=== PATIENT | male | born 1935 | race Caucasian/White ===

== ENCOUNTER 2017-08-03 12:15 | Emergency (ER) | payer MEDICARE, BC ==
[~2017-08-03] VITALS: Ht 170.2 cm; Wt 79.4 kg
--- NOTE | 2017-08-03 12:45 | NUR ---
PT IS IN ROOM 2B. DR TORREZ EVALUATED THE PT.
[2017-08-03 13:23] VITALS: BP 136/73
--- NOTE | 2017-08-03 13:23 | NUR ---
PT WAS D/C TO HOME. D/C INSTRUCTIONS GIVEN TO THE PT.
[2017-08-03] MEDS ORDERED: TDAP DIPH,PERTUSS,TET VAC/PF 0.5 ML DISP.SYRIN IM ONE (13:30)
[2017-08-12] MEDS: TDAP DIPH,PERTUSS,TET VAC/PF 0.5 ML DISP.SYRIN IM ONE (08:16)
[2017-08-12] MEDS: CEPHALEXIN MONOHYDRATE 500 MG CAPSULE PO ONE (08:17)
== END 2017-08-03 13:24 | disposition home or self-care (01) ==
LOC: ER 12:15
DX: S61.211A Laceration without foreign body of left index finger without damage to nail, initial encounter (principal); I10 Essential (primary) hypertension; E78.5 Hyperlipidemia, unspecified; E11.9 Type 2 diabetes mellitus without complications; Z79.4 Long term (current) use of insulin; X58.XXXA Exposure to other specified factors, initial encounter; Y93.H2 Activity, gardening and landscaping; Y92.89 Other specified places as the place of occurrence of the external cause; Y99.8 Other external cause status
CPT/HCPCS: 90471; 90715; 99283; A4663

== ENCOUNTER 2017-08-05 09:03 | Emergency (ER) | payer MEDICARE, BC ==
[~2017-08-05] VITALS: Ht 170.2 cm; Wt 79.4 kg
--- NOTE | 2017-08-05 09:17 | NUR ---
Pt here for wound check, lac on left index finger.
--- NOTE | 2017-08-05 09:26 | NUR ---
Patient discharged to home in stable conditon. Written and verbal after care instructions given. Patient verbalizes understanding of instructions.
[2017-08-05] MEDS ORDERED: NEOMY/BACITRA/POLYMYXIN B OINT UD PACKET TP ONE ×2 (09:30→09:36)
== END 2017-08-05 09:34 | disposition home or self-care (01) ==
LOC: ER 09:05
DX: S61.211D Laceration without foreign body of left index finger without damage to nail, subsequent encounter (principal); I10 Essential (primary) hypertension; E11.9 Type 2 diabetes mellitus without complications; Z79.4 Long term (current) use of insulin; X58.XXXD Exposure to other specified factors, subsequent encounter
CPT/HCPCS: 99283; A4663

== ENCOUNTER 2018-03-26 14:43 | Emergency (ER) | payer MEDICARE, BC ==
[~2018-03-26] VITALS: Ht 170.2 cm; Wt 81.6 kg
--- NOTE | 2018-03-26 14:59 | NUR ---
Dr. Melissa here at the bedside for MSE.
--- NOTE | 2018-03-26 15:56 | NUR ---
Pt returned from XR. Pt stable and nad noted upon returning.
--- NOTE | 2018-03-26 17:26 | NUR ---
Patient discharged to home in stable conditon. Written and verbal after care instructions given. Patient verbalizes understanding of instructions.
== END 2018-03-26 17:26 | disposition home or self-care (01) ==
LOC: ER 14:45
DX: S20.212A Contusion of left front wall of thorax, initial encounter (principal); I10 Essential (primary) hypertension; E78.00 Pure hypercholesterolemia, unspecified; E11.9 Type 2 diabetes mellitus without complications; W01.0XXA Fall on same level from slipping, tripping and stumbling without subsequent striking against object, initial encounter; Y93.89 Activity, other specified; Y92.89 Other specified places as the place of occurrence of the external cause; Y99.8 Other external cause status
CPT/HCPCS: 71101; 93005; A4663

== ENCOUNTER 2020-03-20 12:34 | Emergency (ER) | payer MEDICARE, BC ==
[~2020-03-20] VITALS: Ht 170.2 cm; Wt 75.7 kg
[2020-03-20] MEDS ORDERED: LIDOCAINE HCL 2% 20 ML VIAL ONE (12:49)
--- NOTE | 2020-03-20 13:10 | NUR ---
Patient discharged to home in stable condition. Written and verbal after care instructions given. Patient verbalizes understanding of instructions. Stressed follow up or return to ER for worsening s/s.
[2020-03-20] MEDS ORDERED: LIDOCAINE HCL 2% 20 ML VIAL TP ONE (13:15)
== END 2020-03-20 13:26 | disposition home or self-care (01) ==
LOC: ER 12:34
DX: S61.211A Laceration without foreign body of left index finger without damage to nail, initial encounter (principal); W26.8XXA Contact with other sharp object(s), not elsewhere classified, initial encounter; Y92.89 Other specified places as the place of occurrence of the external cause; E11.9 Type 2 diabetes mellitus without complications; Z79.4 Long term (current) use of insulin; I10 Essential (primary) hypertension
CPT/HCPCS: 12001; 99282; J3490; A4663

== ENCOUNTER 2020-03-22 11:16 | Emergency (ER) | payer MEDICARE, BC ==
[~2020-03-22] VITALS: Ht 170.2 cm; Wt 75.7 kg
[2020-03-22] MEDS ORDERED: NEOMY/BACITRA/POLYMYXIN B OINT UD PACKET TP ONE ×2 (11:30→11:31)
== END 2020-03-22 11:35 | disposition home or self-care (01) ==
LOC: ER 11:16
DX: S61.211D Laceration without foreign body of left index finger without damage to nail, subsequent encounter (principal); W45.8XXD Other foreign body or object entering through skin, subsequent encounter; E11.9 Type 2 diabetes mellitus without complications; Z79.4 Long term (current) use of insulin; I10 Essential (primary) hypertension; E78.5 Hyperlipidemia, unspecified
CPT/HCPCS: A4663

== ENCOUNTER 2020-03-30 09:56 | Emergency (ER) | payer BC, MEDICARE ==
[~2020-03-30] VITALS: Ht 170.2 cm; Wt 75.7 kg
--- NOTE | 2020-03-30 10:17 | NUR ---
PATIENT WAS SEEN BY MD FOR SUTURE REMOVAL WHICH WAS DONE BY DR LOVING. DC AND FOLLOW UP ISNTRUCTIONS GIVEN AND EXPLAINED TO PATIENT WHO STATES HE UNDERSTANDS ALL INSTRUCTIONS.
== END 2020-03-30 10:19 | disposition home or self-care (01) ==
LOC: ER 09:56
DX: S61.211D Laceration without foreign body of left index finger without damage to nail, subsequent encounter (principal); W45.8XXD Other foreign body or object entering through skin, subsequent encounter; E11.9 Type 2 diabetes mellitus without complications; Z79.4 Long term (current) use of insulin; I10 Essential (primary) hypertension
CPT/HCPCS: A4663

== ENCOUNTER 2020-08-03 00:47 | Emergency (ER) | payer MEDICARE, BC ==
[~2020-08-03] VITALS: Ht 170.2 cm; Wt 76.2 kg
--- NOTE | 2020-08-03 01:15 | NUR ---
Dr. Bledsoe at bedside for MSE.
[2020-08-03 01:57] LABS: BASOPHILS % (AUTO) 0.3 % (0.0-2.0); EOSINOPHILS # (AUTO) 0.2 K/uL (0.0-0.7); EOSINOPHILS % (AUTO) 3.1 % (0.0-7.0); HEMATOCRIT 38.1 % (36.7-47.1); HEMOGLOBIN 13.4 g/dL (12.5-16.3); LYMPHOCYTES # (AUTO) 0.9 K/uL (20.0-40.0); LYMPHOCYTES % (AUTO) 16.9 % (20.5-51.5); MEAN CORPUSCULAR HEMOGLOBIN 33.2 uug (23.8-33.4); MEAN CORPUSCULAR HGB CONC 35 g/dL (32.5-36.3); MEAN CORPUSCULAR VOLUME 94.7 fL (73.0-96.2); MONOCYTES # (AUTO) 0.5 K/uL (2.0-10.0); MONOCYTES % (AUTO) 9.4 % (0.0-11.0); NEUTROPHILS # (AUTO) 3.7 K/uL (1.8-8.9); NEUTROPHILS % (AUTO) 70.3 % (38.5-71.5); PLATELET COUNT (AUTO) 181 K/uL (152-348); RED BLOOD CELL COUNT(AUTO) 4.03 MIL/uL (4.06-5.63); WHITE BLOOD COUNT (AUTO) 5.2 K/uL (3.6-10.2)
[2020-08-03 02:05] LABS: ALANINE AMINOTRANSFERASE 21 U/L (16-63); ALKALINE PHOSPHATASE 101 U/L (50-136); ASPARTATE AMINOTRANSFERASE 13 U/L (15-37); BILIRUBIN,DIRECT 0.2 mg/dL (0.0-0.2); BILIRUBIN,TOTAL 0.9 mg/dL (0.2-1.0); CARBON DIOXIDE 31 mmol/L (21-32); CHLORIDE 104 mmol/L (98-107); CREATININE 1.6 mg/dL (0.6-1.3); GLUCOSE 296 mg/dL (74-106); POTASSIUM 4.1 mmol/L (3.5-5.1); TOTAL PROTEIN, SERUM 7.4 g/dL (6.4-8.2); UREA NITROGEN, BLOOD 23 mg/dL (7-18)
[2020-08-03 02:26] LABS: *BLOOD, URINE 3+ (NEGATIVE); *CLARITY,URINE CLOUDY (CLEAR); *COLOR,URINE AMBER (YELLOW); *KETONES,URINE 1+ (NEGATIVE); LEUKOCYTE ESTERASE ,URINE 3+ (NEGATIVE); NITRITE, URINE NEGATIVE (NEGATIVE); PH,URINE 5.5 (5.0-8.0)
[2020-08-03 02:33] LABS: *BILIRUBIN,URIN 3+ (NEGATIVE); UGLUCOSE 2+ (NEGATIVE)
[2020-08-03 02:37] LABS: BACTERIA,URINE MANY /HPF (NONE SEEN); RBC,URINE TNTC /HPF (0-3); SQUAMOUS EPITHELIAL CELL,UR FEW /HPF (NONE SEEN)
[2020-08-03] MEDS ORDERED: CEphaleXIN 500 MG CAPSULE PO ONE (03:00)
[2020-08-03] MEDS ORDERED: CEphaleXIN 500 MG CAPSULE ONE (03:03)
--- NOTE | 2020-08-03 03:17 | NUR ---
Patient discharged to home in stable condition. Written and verbal after care instructions given. Patient verbalizes understanding of instructions. Stressed follow up or return to ER for worsening s/s. Patient ambulated out of ER with steady gait, no acute signs of distress, VSS, all belongings taken.
[2020-08-03 03:18] VITALS: BP 155/80
== END 2020-08-03 03:19 | disposition home or self-care (01) ==
LOC: ER 00:50
DX: N30.91 Cystitis, unspecified with hematuria (principal); E11.9 Type 2 diabetes mellitus without complications; Z79.4 Long term (current) use of insulin; E78.00 Pure hypercholesterolemia, unspecified
CPT/HCPCS: 36415; 85025; 85730; 87086; A4663

== ENCOUNTER 2021-03-11 07:24 | Emergency (ER) | payer MEDICARE, BC ==
[~2021-03-11] VITALS: Ht 170.2 cm; Wt 73.9 kg
[2021-03-11] MEDS: predniSONE 20 MG TABLET PO ONE (07:41)
[2021-03-11] MEDS ORDERED: METO50TA16 PO (07:42)
[2021-03-11] MEDS ORDERED: LEVO75TA7 PO (07:42)
[2021-03-11] MEDS ORDERED: ATOR10TA PO (07:42)
[2021-03-11] MEDS ORDERED: AMLO10TA59 PO (07:42)
[2021-03-11] MEDS ORDERED: INSU100V7 SQ (07:42)
[2021-03-11] MEDS ORDERED: CRAN500T3 PO (07:42)
[2021-03-11] MEDS ORDERED: LOSA100T31 PO (07:42)
[2021-03-11] MEDS ORDERED: predniSONE 50 MG TABLET ONE (07:45)
[2021-03-11] MEDS ORDERED: predniSONE 10 MG TABLET ONE (07:45)
== END 2021-03-11 07:49 | disposition home or self-care (01) ==
LOC: ER 07:24
DX: T78.3XXA Angioneurotic edema, initial encounter (principal); C67.9 Malignant neoplasm of bladder, unspecified; Z79.899 Other long term (current) drug therapy; E11.9 Type 2 diabetes mellitus without complications; Z79.4 Long term (current) use of insulin; I10 Essential (primary) hypertension
CPT/HCPCS: 99283; J7512 ×2; A4663

== ENCOUNTER 2021-11-21 20:31 | Inpatient (IN) | payer MEDICARE, BC ==
[~2021-11-21] VITALS: Ht 170.2 cm; Wt 73.5 kg
[~2021-11-21 20:31] MED LIST: AMLO10TA59 PO; ATOR10TA PO; CRAN500T3 PO; INSU100V7 SQ; LEVO75TA7 PO; LOSA100T31 PO; METO50TA16 PO
[2021-11-21 21:38] LABS: HEMATOCRIT 38.9 % (36.7-47.1); MEAN CORPUSCULAR VOLUME 96.3 fL (73.0-96.2); PLATELET COUNT (AUTO) 132 K/uL (152-348)
[2021-11-21] MEDS ORDERED: OXYB5TAB16 PO (21:44)
[2021-11-21] MEDS ORDERED: FINA5TAB11 PO (21:44)
[2021-11-21] MEDS ORDERED: TAMS-3 PO (21:44)
[2021-11-21] MEDS ORDERED: INSULIN LISPRO SUBCUT (21:44)
[2021-11-21 21:46] LABS: CARBON DIOXIDE 26 mmol/L (21-32); CHLORIDE 102 mmol/L (98-107); CREATININE 1.4 mg/dL (0.6-1.3); POTASSIUM 3.7 mmol/L (3.5-5.1); UREA NITROGEN, BLOOD 18 mg/dL (7-18)
[2021-11-21 21:51] LABS: GLUCOSE 320 mg/dL (74-106)
[2021-11-21 21:59] LABS: ALANINE AMINOTRANSFERASE 17 U/L (16-63); ALKALINE PHOSPHATASE 78 U/L (50-136); ASPARTATE AMINOTRANSFERASE 11 U/L (15-37); BILIRUBIN,DIRECT 0.3 mg/dL (0.0-0.2); BILIRUBIN,TOTAL 1.4 mg/dL (0.2-1.0); TOTAL PROTEIN, SERUM 7.4 g/dL (6.4-8.2)
[2021-11-21] MEDS ORDERED: NITROGLYCERIN 0.4 MG/TAB BOTTLE SL ONE ×2 (22:00→22:12)
[2021-11-21] MEDS ORDERED: ASPIRIN 325 MG TABLET PO ONE (22:00)
[2021-11-21] MEDS ORDERED: ASPIRIN 325 MG TABLET ONE (22:12)
--- NOTE | 2021-11-21 22:13 | NUR ---
AFTER 1ST DOSE OF NITRO SUBLINGUAL PAIN IS 3/10, DESCRIBING TIGHTNESS. 2ND DOSE GIVEN AT THIS TIME.
--- NOTE | 2021-11-21 22:19 | NUR ---
AFTER 2ND DOSE OF NITRO SL TIGHTNESS IN CHEST IS 3/10. GAVE 3RD DOSE OF NITRO.
--- NOTE | 2021-11-21 22:26 | NUR ---
AFTER 3RD DOSE OF NITRO TIGHTNESS PAIN IS 2/10.
[2021-11-21] MEDS ORDERED: SWABABLE VALVE TRANSFER SET EA MC ONE (22:57)
[2021-11-21] MEDS ORDERED: IOHEXOL 350 100 ML INFUS..BTL ONE (22:58)
[2021-11-21] MEDS ORDERED: IV NORMAL SALINE 250 ML IV ONE (22:58)
--- NOTE | 2021-11-22 00:14 | NUR ---
Patient tightness on chest is 3/10. Dr Rider ordered 4th dose of nitro SL.
[2021-11-22] MEDS ORDERED: NITROGLYCERIN 0.4 MG/TAB BOTTLE SL ONE (00:15)
--- NOTE | 2021-11-22 02:02 | NUR ---
Called [facility] to page Javier Melchor NP.
[2021-11-22] MEDS ORDERED: MAGNESIUM HYDROXIDE 30 ML LIQUID UDC PO PRN (02:15)
[2021-11-22] MEDS ORDERED: ACETAMINOPHEN 325 MG TABLET PO PRN (02:15)
[2021-11-22] MEDS ORDERED: NITROGLYCERIN 0.4 MG/TAB BOTTLE SL PRN (02:15)
[2021-11-22] MEDS ORDERED: DEXTROSE 50% 50 ML DISP.SYRIN IV PRN (02:15)
[2021-11-22] MEDS ORDERED: TEMAZEPAM 15 MG CAPSULE PO PRN (02:15)
[2021-11-22] MEDS ORDERED: ONDANSETRON 4 MG/2 ML VIAL IV PRN (02:15)
[2021-11-22] MEDS ORDERED: MORPHINE SULFATE 2 MG/1 ML DISP.SYRIN IV PRN (02:15)
[2021-11-22] MEDS ORDERED: REMEDY ESSENTIAL ZINC PASTE 113 GM TP PRN (02:15)
[2021-11-22] MEDS ORDERED: HYDROCODONE/APAP 10-325 MG TABLET PO PRN (02:15)
--- NOTE | 2021-11-22 02:16 | NUR ---
Tasha Melchor WIRE SPOOLER juvenile corrections officer for [facility] accepted patient to Tele Floor.
[2021-11-22] MEDS ORDERED: INSULIN REGULAR, HUMAN 10 UNIT in IV NORMAL SALINE 100 ML IV ONE ×4 (03:00)
--- NOTE | 2021-11-22 03:06 | NUR ---
Gave 10units of Regular insulin IVP as ordered by Dr Rider for BS 384. Co Check dose with Germain OLMSTEAD. Order does not show up on the EMAR.
[2021-11-22] MEDS ORDERED: INSULIN REGULAR, HUMAN 300 UNIT/3 ML VIAL ONE ×2 (03:15→08:00)
[2021-11-22] MEDS: PANTOPRAZOLE SODIUM 40 MG TABLET.DR PO SCH (07:02)
[2021-11-22] MEDS ORDERED: PANTOPRAZOLE SODIUM 40 MG TABLET.DR PO ONE (07:10)
[2021-11-22] MEDS: BLOOD SUGAR DIAGNOSTIC 1 EACH STRIP VI SCH ×4 (07:49→21:55)
[2021-11-22] MEDS: INSULIN REGULAR, HUMAN 300 UNIT/3 ML VIAL SQ PRN ×3 (07:55→22:06)
--- NOTE | 2021-11-22 08:17 | NUR ---
michael wills provided for pt.
--- NOTE | 2021-11-22 08:42 | NUR ---
DR. AHUJA AT BEDSIDE.
[2021-11-22 08:50] LABS: CARBON DIOXIDE 22 mmol/L (21-32); CHLORIDE 101 mmol/L (98-107); CREATININE 1.4 mg/dL (0.6-1.3); POTASSIUM 3.8 mmol/L (3.5-5.1); UREA NITROGEN, BLOOD 19 mg/dL (7-18)
--- NOTE | 2021-11-22 09:00 | NUR ---
DR. AHUJA SAID THAT THE PT NEEDS TO GO TO [facility] FOR CARDIAC CTA AND HE WILL CONTACT THE NIGHT MANAGER TO ARRANGE FOR TRANSFER.
[2021-11-22] MEDS: ASPIRIN 81 MG TAB.CHEW PO SCH (09:09)
[2021-11-22] MEDS ORDERED: IV NS 1000 ML 1,000 ML IV ONE (09:15)
[2021-11-22] MEDS ORDERED: ASPIRIN 81 MG TAB.CHEW ONE (09:17)
[2021-11-22 09:22] LABS: GLUCOSE 327 mg/dL (74-106)
[2021-11-22] MEDS: METOPROLOL TARTRATE 25 MG TABLET PO SCH ×2 (10:03→21:56)
[2021-11-22] MEDS ORDERED: METOPROLOL TARTRATE 50 MG TABLET ONE (10:07)
--- NOTE | 2021-11-22 11:44 | NUR ---
[facility] CALLED, ETA FOR AMBULANCE [id number]. NOTIFIED THE PT.
--- NOTE | 2021-11-22 12:23 | NUR ---
HOSPITAL DIABETIC TRAY PROVIDED PER PT REQUEST.
--- NOTE | 2021-11-22 13:02 | NUR ---
ambulance at bedside to take the pt to [facility] for cardiac cta. pt in stable condition. vss. pt denies any cp/pressure at this time.
--- NOTE | 2021-11-22 13:30 | NUR ---
Pt is currently at [facility] for cardiac CTA per report.
--- NOTE | 2021-11-22 14:40 | NUR ---
Pt back from [facility], pt denies any chest pain or SOB, NAD noted. 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
--- NOTE | 2021-11-22 14:42 | NUR ---
Called tele floor for update on tele bed assignment, was told they will call back.
--- NOTE | 2021-11-22 17:30 | NUR ---
Pt resting in [facility] with NAD noted. Pending tele admission when bed available. Plan of care discussed with pt.
--- NOTE | 2021-11-22 17:34 | NUR ---
Room 327 on tele floor assigned by nursing pump servicer supervisor, pt to be trans after change of shift.
--- NOTE | 2021-11-22 17:56 | NUR ---
Accu pxttz=[id number], pt given Regular Insulin 4units SQ (Lt arm) as per sliding scale. Dose and medication verified by ISHAN Irving.
--- NOTE | 2021-11-22 17:57 | NUR ---
Pt given his diabetic dinner tray and is eating dinner and watching TV, NAD noted.
[2021-11-22] MEDS ORDERED: METO-358 PO (19:05)
--- NOTE | 2021-11-22 19:38 | NUR ---
PT IN BED. AA/0X4. ABLE TO VERBALIZE NEEDS NO S/S OF DISTRESS DENIES PAIN AT THIS TIME INSTRUCTED PT TO CALL NURSE FOR ASSISTANCE SIDE RAILS UP FOR SAFETY WILL CONTINUE TO MONITOR
--- NOTE | 2021-11-22 19:55 | NUR ---
REPORT GIVEN TO ISHAN MALHOTRA
[2021-11-22 20:25] VITALS: BP 141/60
--- NOTE | 2021-11-22 20:30 | NUR ---
Received patient from ER, per tashia, alert x3-4, no shortness of breath , no complaint of chest pain. Able to ambulate going to the bathroom, Able to move both upper and lower extremities. Skin intact. With complete covid vaccine record, flu and pnemonia vaccine given on 06/2021 per patient. On accucheck ACHS. Call light placed within reach, Fall precautions provided.
[2021-11-22] MEDS: ATORVASTATIN 40 MG TABLET PO SCH (21:56)
--- NOTE | 2021-11-22 22:30 | NUR ---
patient awake, blood sugar checked and recorded. Tele reading sinus at 70 with rare PVC.
[2021-11-22] MEDS: INSULIN GLARGINE,HUM 300 UNITS/3 ML CARTRIDGE SQ SCH (23:16)
[2021-11-23 00:03] VITALS: BP_SYST 13; BP_SYST 138; BP_DIAS 68
--- NOTE | 2021-11-23 00:30 | NUR ---
Patient asleep, with tele reading sinus at 70.
[2021-11-23 04:15] VITALS: BP 137/52
--- NOTE | 2021-11-23 04:18 | NUR ---
patient still asleep, tele reading sinus at 65.
[2021-11-23] MEDS: PANTOPRAZOLE SODIUM 40 MG TABLET.DR PO SCH (06:12)
[2021-11-23] MEDS: BLOOD SUGAR DIAGNOSTIC 1 EACH STRIP VI SCH ×4 (06:17→21:14)
--- NOTE | 2021-11-23 06:20 | NUR ---
Patient awake, able to slept for long hours, no signs of shortness of breath and chest pain noted. Blood sugar checked 244mg/dl.
[2021-11-23 06:27] LABS: HEMATOCRIT 33.9 % (36.7-47.1); MEAN CORPUSCULAR HEMOGLOBIN 33.3 uug (23.8-33.4); MEAN CORPUSCULAR VOLUME 95.2 fL (73.0-96.2); PLATELET COUNT (AUTO) 126 K/uL (152-348)
[2021-11-23 06:50] LABS: CARBON DIOXIDE 22 mmol/L (21-32); CHLORIDE 103 mmol/L (98-107); CREATININE 1.4 mg/dL (0.6-1.3); GLUCOSE 250 mg/dL (74-106); PHOSPHOROUS 2.2 mg/dL (2.5-4.9); POTASSIUM 3.5 mmol/L (3.5-5.1); UREA NITROGEN, BLOOD 18 mg/dL (7-18)
[2021-11-23 08:00] LABS: THYROID STIMULATING HORMONE 2.123 mIU/mL (0.358-3.740)
[2021-11-23] MEDS: ASPIRIN 81 MG TAB.CHEW PO SCH (08:38)
[2021-11-23] MEDS: METOPROLOL TARTRATE 25 MG TABLET PO SCH ×2 (08:38→21:00)
[2021-11-23] MEDS: INSULIN REGULAR, HUMAN 300 UNIT/3 ML VIAL SQ PRN ×4 (08:41→21:10)
[2021-11-23] MEDS ORDERED: IV NS 1000 ML 1,000 ML IV ONE (09:00)
[2021-11-23] MEDS ORDERED: ENOXAPARIN SODIUM 80 MG/0.8 ML DISP.SYRIN SQ ONE (09:00)
--- NOTE | 2021-11-23 10:24 | NUR ---
received pt in bed awake and watching tv. no acute distress. denies sob, denies chest pain/pressure, stated chest pain subsided last monday night/monday morning. has been feeling well. no complaints. in pleasant mood. rounding with dr. ortez. for transfer to [facility] for cardiac catheterization. no further orders received. will cont to monitor. safety and comfort provided.
[2021-11-23 11:54] VITALS: BP 137/63
[2021-11-23 13:56] LABS: *BILIRUBIN,URIN NEGATIVE (NEGATIVE); *BLOOD, URINE NEGATIVE (NEGATIVE); *CLARITY,URINE CLEAR (CLEAR); *COLOR,URINE YELLOW (YELLOW); *KETONES,URINE NEGATIVE (NEGATIVE); *UROBILINOGEN,URINE 0.2 E.U./dl (NORMAL); LEUKOCYTE ESTERASE ,URINE NEGATIVE (NEGATIVE); NITRITE, URINE NEGATIVE (NEGATIVE); PH,URINE 5.5 (5.0-8.0); UGLUCOSE 2+ (NEGATIVE)
[2021-11-23 14:16] LABS: *CREATININE,URINE 85.8 mg/dL (30-125); *URINE TOTAL PROTEIN RANDOM 43.5 mg/dL (<150/24HR)
--- NOTE | 2021-11-23 14:16 | NUR ---
Call received from Ethel Herbert. Patient will be picked up tomorrow 630am by [facility] for transfer to [facility] for cardiac catheterization. Patient is aware and agreeable.
--- NOTE | 2021-11-23 14:47 | NUR ---
Patient's in the room visiting. patient gave his bird money and some belongings to his , noted on belongings list.
[2021-11-23 16:00] VITALS: BP 119/48
[2021-11-23] MEDS ORDERED: NEUTRA PHOS PACKET PO ONE (16:15)
--- NOTE | 2021-11-23 16:29 | NUR ---
Received call from Anisha OLMSTEAD from [facility] and gave report for the patient. Patient will have cardiac catheterization tomorrow 1030am. Faxed requested labs to [facility]. Per Anisha patient to be npo after midnight for procedure tomorrow. made aware.
[2021-11-23 20:00] VITALS: BP 136/52
[2021-11-23] MEDS: INSULIN GLARGINE,HUM 300 UNITS/3 ML CARTRIDGE SQ SCH (21:09)
[2021-11-23] MEDS: ATORVASTATIN 40 MG TABLET PO SCH (21:13)
--- NOTE | 2021-11-23 21:18 | NUR ---
lopressor 25mg held pulse is 54.
[2021-11-24 00:28] VITALS: BP 154/64
[2021-11-24 04:00] VITALS: BP 172/71
--- NOTE | 2021-11-24 05:40 | NUR ---
Patient alert oriented, no sob no chest, no chest pressure complain at this time, patient remains npo, able to signed consent for transfer, will call to [facility] for report, cont to monitor.
--- NOTE | 2021-11-24 05:42 | NUR ---
Patient tele monitor sinus rhythm sinus cedric, but no chest pressure pain, cont to monitor.
[2021-11-24 05:43] VITALS: BP 160/64
[2021-11-24] MEDS: BLOOD SUGAR DIAGNOSTIC 1 EACH STRIP VI SCH (06:19)
[2021-11-24] MEDS: PANTOPRAZOLE SODIUM 40 MG TABLET.DR PO SCH (06:19)
--- NOTE | 2021-11-24 06:31 | NUR ---
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
[2021-11-24 06:41] LABS: HEMATOCRIT 31.4 % (36.7-47.1); MEAN CORPUSCULAR HEMOGLOBIN 33.1 uug (23.8-33.4); MEAN CORPUSCULAR VOLUME 94.7 fL (73.0-96.2); PLATELET COUNT (AUTO) 130 K/uL (152-348)
[2021-11-24 06:47] LABS: ALANINE AMINOTRANSFERASE 9 U/L (16-63); ALKALINE PHOSPHATASE 49 U/L (50-136); ASPARTATE AMINOTRANSFERASE < 5 U/L (15-37); BILIRUBIN,TOTAL 1.1 mg/dL (0.2-1.0); CARBON DIOXIDE 25 mmol/L (21-32); CHLORIDE 107 mmol/L (98-107); CREATINE KINASE, TOTAL 32 U/L (39-308); CREATININE 1.3 mg/dL (0.6-1.3); GLUCOSE 154 mg/dL (74-106); PHOSPHOROUS 2.8 mg/dL (2.5-4.9); POTASSIUM 3.8 mmol/L (3.5-5.1); TOTAL PROTEIN, SERUM 6.3 g/dL (6.4-8.2); UREA NITROGEN, BLOOD 17 mg/dL (7-18)
--- NOTE | 2021-11-24 07:00 | NUR ---
Patient transfer to [facility] as per arrangement by cardiac team, last picker by [facility], patient alert oriented, stable, took all belongings.
[2021-11-25 08:06] LABS: A/G RATIO 1.1 (0.7-1.7); ALPHA-1-GLOBULIN 0.3 g/dL (0.0-0.4); ALPHA-2-GLOBULIN 0.8 g/dL (0.4-1.0); BETA GLOBULIN 0.8 g/dL (0.7-1.3); GAMMA GLOBULIN 0.9 g/dL (0.4-1.8); GLOBULIN, TOTAL 2.8 g/dL (2.2-3.9); M-SPIKE Not Observed g/dL (Not Observed)
== END 2021-11-24 07:00 | disposition short-term general hospital (02) | DRG 302 ==
LOC: ER 20:34 → TRANSITION 11-22 06:56 → TELE3 11-22 19:59
PROVIDERS: ADMIT Internal Medicine; ATTEND Family Medicine
DX: I25.110 Atherosclerotic heart disease of native coronary artery with unstable angina pectoris (principal); N17.0 Acute kidney failure with tubular necrosis; I31.3 Pericardial effusion (noninflammatory); E11.65 Type 2 diabetes mellitus with hyperglycemia; Z79.4 Long term (current) use of insulin; Z92.3 Personal history of irradiation; Z92.21 Personal history of antineoplastic chemotherapy; Z85.51 Personal history of malignant neoplasm of bladder; I12.9 Hypertensive chronic kidney disease with stage 1 through stage 4 chronic kidney disease, or unspecified chronic kidney disease; N18.9 Chronic kidney disease, unspecified; E78.5 Hyperlipidemia, unspecified; Z20.822 Contact with and (suspected) exposure to COVID-19; Z87.891 Personal history of nicotine dependence; Z90.79 Acquired absence of other genital organ(s); R91.8 Other nonspecific abnormal finding of lung field
CPT/HCPCS: 36415; 71045; 71275; 76770; 83735; 83970; 84100; 84155; 84156; 84165; 84300; 84443; 84484; 85025; 93005; 93307; A4663; G0378; J1650; J1815; J7030; J7050; Q9967

== ENCOUNTER 2023-06-10 04:32 | Emergency (ER) | payer MEDICARE, BC ==
[~2023-06-10] VITALS: Ht 170.2 cm; Wt 74.8 kg
[~2023-06-10 04:32] MED LIST changes: +FINA5TAB11 PO; +INSULIN LISPRO SUBCUT; +METO-358 PO; -METO50TA16 PO; +OXYB5TAB16 PO; +TAMS-3 PO
[2023-06-10 05:31] LABS: *BILIRUBIN,URIN NEGATIVE (NEGATIVE); *BLOOD, URINE 3+ (NEGATIVE); *CLARITY,URINE CLOUDY (CLEAR); *COLOR,URINE AMBER (YELLOW); *KETONES,URINE NEGATIVE (NEGATIVE); *PROTEIN,URINE 2+ (NEGATIVE); *UROBILINOGEN,URINE 0.2 E.U./dl (NORMAL); LEUKOCYTE ESTERASE ,URINE NEGATIVE (NEGATIVE); NITRITE, URINE NEGATIVE (NEGATIVE); PH,URINE 5.5 (5.0-8.0)
[2023-06-10 05:34] LABS: BASOPHILS % (AUTO) 0.4 % (0.0-2.0); EOSINOPHILS # (AUTO) 0.2 K/uL (0.0-0.7); EOSINOPHILS % (AUTO) 3.6 % (0.0-7.0); HEMATOCRIT 37.3 % (36.7-47.1); HEMOGLOBIN 12.9 g/dL (12.5-16.3); LYMPHOCYTES # (AUTO) 0.9 K/uL (0.8-4.8); LYMPHOCYTES % (AUTO) 17.2 % (20.5-51.5); MEAN CORPUSCULAR HEMOGLOBIN 33.3 uug (23.8-33.4); MEAN CORPUSCULAR HGB CONC 35 g/dL (32.5-36.3); MEAN CORPUSCULAR VOLUME 96.4 fL (73.0-96.2); MONOCYTES # (AUTO) 0.6 K/uL (0.1-1.30); NEUTROPHILS # (AUTO) 3.5 K/uL (1.8-8.9); NEUTROPHILS % (AUTO) 66.8 % (38.5-71.5); PLATELET COUNT (AUTO) 135 K/uL (152-348); RED BLOOD CELL COUNT(AUTO) 3.87 MIL/uL (4.06-5.63); RED CELL DISTRIBUTION WIDTH 13.8 % (12.1-16.2); WHITE BLOOD COUNT (AUTO) 5.2 K/uL (3.6-10.2)
[2023-06-10 05:43] LABS: UGLUCOSE 2+ (NEGATIVE)
[2023-06-10 05:44] LABS: DIFFERENTIAL COMMENT 1
[2023-06-10 05:51] LABS: CALCIUM 8.5 mg/dL (8.5-10.1); CARBON DIOXIDE 25 mmol/L (21-32); CHLORIDE 106 mmol/L (98-107); CREATININE 1.4 mg/dL (0.6-1.3); GLUCOSE 204 mg/dL (74-106); POTASSIUM 4.2 mmol/L (3.5-5.1); SODIUM SERUM 141 mmol/L (136-145); UREA NITROGEN, BLOOD 29 mg/dL (7-18)
[2023-06-10 05:56] LABS: ALANINE AMINOTRANSFERASE 18 U/L (16-63); ALBUMIN 3.3 g/dL (3.4-5.0); ALKALINE PHOSPHATASE 103 U/L (50-136); ASPARTATE AMINOTRANSFERASE 14 U/L (15-37); BILIRUBIN,DIRECT 0.2 mg/dL (0.0-0.2); LIPASE 79 U/L (73-393); TOTAL PROTEIN, SERUM 6.3 g/dL (6.4-8.2)
[2023-06-10 06:04] LABS: BACTERIA,URINE MODERATE /HPF (NONE SEEN); RBC,URINE TNTC /HPF (0-3); SQUAMOUS EPITHELIAL CELL,UR FEW /HPF (NONE SEEN); WBC,URINE 0-3 /HPF (0-3)
[2023-06-10] MEDS ORDERED: CEPH500C2 PO (06:43)
[2023-06-10 06:51] VITALS: BP 131/68; TEMP 98.4; O2SAT 99
== END 2023-06-10 06:51 | disposition home or self-care (01) ==
LOC: ER 04:34
DX: R31.9 Hematuria, unspecified (principal); N39.0 Urinary tract infection, site not specified; E78.5 Hyperlipidemia, unspecified; E11.9 Type 2 diabetes mellitus without complications; I10 Essential (primary) hypertension; Z79.4 Long term (current) use of insulin; Z79.899 Other long term (current) drug therapy
CPT/HCPCS: 36415; 83690; 85025; A4663

== ENCOUNTER 2023-10-28 11:14 | Emergency (ER) | payer MEDICARE, BC ==
[~2023-10-28] VITALS: Ht 170.2 cm; Wt 73.5 kg
[~2023-10-28 11:14] MED LIST changes: +CEPH500C2 PO
[2023-10-28] MEDS ORDERED: INSU100V37 SQ (11:51)
[2023-10-28] MEDS ORDERED: ASPI81TA31 PO (11:51)
[2023-10-28] MEDS ORDERED: BIOF1TAB PO (11:51)
[2023-10-28] MEDS ORDERED: INSU100C SQ (11:51)
[2023-10-28] MEDS ORDERED: CEPH500C2 PO (13:21)
[2023-10-28 13:31] LABS: *CLARITY,URINE CLOUDY (CLEAR); *COLOR,URINE RED (YELLOW); *PROTEIN,URINE 3+ (NEGATIVE); PH,URINE 8.5 (5.0-8.0)
[2023-10-28 13:32] LABS: *BILIRUBIN,URIN 3+ (NEGATIVE); *BLOOD, URINE 3+ (NEGATIVE); *KETONES,URINE 2+ (NEGATIVE); LEUKOCYTE ESTERASE ,URINE 3+ (NEGATIVE); NITRITE, URINE NEGATIVE (NEGATIVE); UGLUCOSE TRACE (NEGATIVE)
[2023-10-28 14:04] VITALS: BP 136/81; O2SAT 96
[2023-10-28 14:37] LABS: RBC,URINE TNTC /HPF (0-3)
[2023-10-28 14:38] LABS: BACTERIA,URINE NONE SEEN /HPF (NONE SEEN); SQUAMOUS EPITHELIAL CELL,UR NONE SEEN /HPF (NONE SEEN); WBC,URINE 20-50 /HPF (0-3)
== END 2023-10-28 14:07 | disposition home or self-care (01) ==
LOC: ER 11:18
DX: R31.0 Gross hematuria (principal); Z85.51 Personal history of malignant neoplasm of bladder; E11.9 Type 2 diabetes mellitus without complications; I10 Essential (primary) hypertension; Z79.82 Long term (current) use of aspirin; Z98.890 Other specified postprocedural states; Z79.899 Other long term (current) drug therapy; Z60.2 Problems related to living alone
CPT/HCPCS: 71045; 93005; A4606; A4663

== ENCOUNTER → 2025-08-11 | Emergency (ER) | payer MEDICARE, BC ==
[~2025-08-11] VITALS: Ht 167.6 cm; Wt 73.9 kg
[~2025-08-11] MED LIST changes: -AMLO10TA59 PO; +ASPI81TA31 PO; +BIOF1TAB PO; -CRAN500T3 PO; -FINA5TAB11 PO; +INSU100C SQ; +INSU100V37 SQ; -INSU100V7 SQ; -INSULIN LISPRO SUBCUT; -OXYB5TAB16 PO; -TAMS-3 PO
[2025-08-11 00:32] VITALS: BP 148/75
[2025-08-11 00:58] LABS: *BILIRUBIN,URIN NEGATIVE (NEGATIVE); *BLOOD, URINE 3+ (NEGATIVE); *KETONES,URINE TRACE (NEGATIVE); *PROTEIN,URINE 2+ (NEGATIVE); *UROBILINOGEN,URINE 1.0 E.U./dl (NORMAL); LEUKOCYTE ESTERASE ,URINE NEGATIVE (NEGATIVE); NITRITE, URINE NEGATIVE (NEGATIVE); UGLUCOSE NEGATIVE (NEGATIVE)
[2025-08-11 00:59] LABS: *CLARITY,URINE CLOUDY (CLEAR); *COLOR,URINE RED (YELLOW)
[2025-08-11 01:06] LABS: SQUAMOUS EPITHELIAL CELL,UR FEW /HPF (NONE SEEN)
[2025-08-11 02:12] VITALS: BP 148/75; O2SAT 95
== END | disposition home or self-care (01) ==
LOC: ER 06:35
DX: R31.9 Hematuria, unspecified (principal); I25.10 Atherosclerotic heart disease of native coronary artery without angina pectoris; E11.9 Type 2 diabetes mellitus without complications; I11.9 Hypertensive heart disease without heart failure; E78.5 Hyperlipidemia, unspecified; N32.89 Other specified disorders of bladder; Z79.4 Long term (current) use of insulin; Z79.890 Hormone replacement therapy; Z79.899 Other long term (current) drug therapy; Z85.46 Personal history of malignant neoplasm of prostate; Z85.51 Personal history of malignant neoplasm of bladder; Z88.7 Allergy status to serum and vaccine; Z95.5 Presence of coronary angioplasty implant and graft
CPT/HCPCS: 87086; A4606; A4663